=== PATIENT | male | born 1930 | race Hispanic/Latino ===

== ENCOUNTER 2018-02-07 10:52 | Emergency (ER) | payer MEDICARE ==
--- NOTE | 2018-02-07 11:50 | C.PDOC ---
History Of Present Illness 87 y/o male, w/PMhx of Afib, HTN, and hypercholesterolemia, presents to the ER for evaluation of mild headache s/p fall last night. Patient states that he fell around 10 pm last night and he woke up in the morning. Patient reports that he had a mild headache which resolved. However, he was evaluated by his PCP . referred him to the ER for CT- Head because he is on Coumadin. Currently, patient denies having headache, dizziness CP, SOB, nausea, vomiting, and leg swelling. - HPI Time Seen by Provider: 02/07/18 11:10 Chief Complaint (Nursing): Trauma History Per: Patient History/Exam Limitations: no limitations Onset/Duration Of Symptoms: Hrs Severity: Moderate Past Medical History Reviewed: Historical Data, Nursing Documentation, Vital Signs Vital Signs: Last Vital Signs Temp 97.3 F L 02/07/18 10:57 Pulse 71 02/07/18 11:36 Resp 20 02/07/18 11:36 BP 112/58 L 02/07/18 11:36 Pulse Ox 98 02/07/18 11:36 - Medical History PMH: Atrial Fibrillation, Benign Prostatic Hyperplasia, HTN, Hypercholesterolemia Surgical History: No Surg Hx Family History: States: No Known Family Hx - Social History Hx Alcohol Use: No Hx Substance Use: No - Immunization History Hx Tetanus Toxoid Vaccination: No Hx Influenza Vaccination: No Hx Pneumococcal Vaccination: No Review Of Systems Except As Marked, All Systems Reviewed And Found Negative. Constitutional: Negative for: Fever, Chills Cardiovascular: Negative for: Chest Pain Respiratory: Negative for: Shortness of Breath Gastrointestinal: Negative for: Nausea, Vomiting Neurological: Positive for: Headache (currently resolved). Negative for: Dizziness Physical Exam - Physical Exam Appears: Non-toxic, No Acute Distress Skin: Normal Color, Warm, Dry Head: Atraumatic, Normacephalic Eye(s): bilateral: Normal Inspection Ear(s): Bilateral: Normal, Other (wears hearing aids, no blood in ears) Nose: Normal Oral Mucosa: Moist Neck: Normal ROM, No Midline Cervical Tenderness, Supple Chest: Symmetrical Cardiovascular: Rhythm Regular Respiratory: Normal Breath Sounds, No Rales, No Rhonchi, No Wheezing Gastrointestinal/Abdominal: Normal Exam, Soft, No Tenderness, No Guarding, No Rebound Neurological/Psych: Oriented x3, Normal Speech, Normal Motor, Normal Sensation ED Course And Treatment O2 Sat by Pulse Oximetry: 98 (RA) Pulse Ox Interpretation: Normal - CT Scan/US CT-Head Other Rad Studies (CT/US): Read By Radiologist, Radiology Report Reviewed CT/US Interpretation: Date of service: 02/07/2018. PROCEDURE: CT HEAD WITHOUT CONTRAST. HISTORY: Status post fall in a patient on Coumadin. COMPARISON: None available. TECHNIQUE: Axial computed tomography images were obtained through the head/brain without intravenous contrast. Radiation dose: Total exam DLP = 1108.1 mGy-cm. This CT exam was performed using one or more of the following dose reduction techniques: Automated exposure control, adjustment of the mA and/or kV according to patient size, and/or use of iterative reconstruction technique. FINDINGS: HEMORRHAGE: No acute parenchymal, subarachnoid or extra-axial hemorrhage.. BRAIN: Mild to moderate diffuse and confluent chronic white matter ischemic changes seen extending peripherally into the deep and subcortical white matter both cerebral hemispheres. There may also be a few scattered more discrete deep and subcortical white matter lacunar type infarcts. Note that the possibility of a small hyperacute infarct cannot be excluded. Moderate to fairly significant generalized volume loss. Vascular calcifications both carotid siphons. VENTRICLES: No obstructive hydrocephalus. CALVARIUM: There are no acute calvarial fracture seen.. Suspect small osteoma within the left supraorbital frontal calvarium. PARANASAL SINUSES: Unrem arkable as visualized. No significant inflammatory changes. MASTOID AIR CELLS: Unremarkable as visualized. No inflammatory changes. OTHER FINDINGS: Changes of bilateral cataract surgery. IMPRESSION: No acute intracranial hemorrhage. Mild to moderate diffuse and confluent chronic white matter ischemic changes seen extending peripherally into the deep and subcortical white matter both cerebral hemispheres. There may also be a few scattered more discrete deep and subcortical white matter lacunar type infarcts. Note that the possibility of a small hyperacute infarct cannot be excluded. Moderate to fairly significant generalized volume loss. Medical Decision Making Medical Decision Making: Impression: Headache s/p fall Plan: --Tylenol PO --CT-Head Updates: 13:38 CT-Head is negative. Patient has been discharged and instricted to follow up with PCP. Disposition - Disposition Referrals: [facility] [place]] [facility] [place] [Outside] [facility] at [place] [Outside] Disposition: HOME/ ROUTINE Disposition Time: 13:39 Condition: GOOD Additional Instructions: Follow up with your pcp as needed or if headache worsened. Instructions: Headache, Adult (DC) Forms: [facility] (Palestinian) - Clinical Impression Clinical Impression: Concussion with no loss of consciousness - Scribe Statement The provider has reviewed the documentation as recorded by the Scribe Amber Conde Provider Attestation: All medical record entries made by the Scribe were at my direction and personally dictated by me. I have reviewed the chart and agree that the record accurately reflects my personal performance of the history, physical exam, medical decision making, and the department course for this patient. I have also personally directed, reviewed, and agree with the discharge instructions and disposition.
--- NOTE | 2018-02-07 13:10 | CT ---
Date of service: 02/07/2018 PROCEDURE: CT HEAD WITHOUT CONTRAST. HISTORY: Status post fall in a patient on Coumadin. COMPARISON: None available. TECHNIQUE: Axial computed tomography images were obtained through the head/brain without intravenous contrast. Radiation dose: Total exam DLP = 1108.1 mGy-cm. This CT exam was performed using one or more of the following dose reduction techniques: Automated exposure control, adjustment of the mA and/or kV according to patient size, and/or use of iterative reconstruction technique. FINDINGS: HEMORRHAGE: No acute parenchymal, subarachnoid or extra-axial hemorrhage.. BRAIN: Mild to moderate diffuse and confluent chronic white matter ischemic changes seen extending peripherally into the deep and subcortical white matter both cerebral hemispheres. There may also be a few scattered more discrete deep and subcortical white matter lacunar type infarcts. Note that the possibility of a small hyperacute infarct cannot be excluded. Moderate to fairly significant generalized volume loss. Vascular calcifications both carotid siphons. VENTRICLES: No obstructive hydrocephalus. CALVARIUM: There are no acute calvarial fracture seen.. Suspect small osteoma within the left supraorbital frontal calvarium. PARANASAL SINUSES: Unremarkable as visualized. No significant inflammatory changes. MASTOID AIR CELLS: Unremarkable as visualized. No inflammatory changes. OTHER FINDINGS: Changes of bilateral cataract surgery. IMPRESSION: No acute intracranial hemorrhage. Mild to moderate diffuse and confluent chronic white matter ischemic changes seen extending peripherally into the deep and subcortical white matter both cerebral hemispheres. There may also be a few scattered more discrete deep and subcortical white matter lacunar type infarcts. Note that the possibility of a small hyperacute infarct cannot be excluded. Moderate to fairly significant generalized volume loss.
[2018-02-07 13:43] VITALS: RESP 18
[2018-02-07 16:19] VITALS: BP 131/65; PULSE 66; TEMP 97.5
[2018-02-07 21:24] VITALS: O2SAT 98
== END 2018-02-07 16:20 | disposition home or self-care (01) ==
LOC: C.ER 10:52
DX: S06.0X0A Concussion without loss of consciousness, initial encounter (principal); W18.30XA Fall on same level, unspecified, initial encounter